=== PATIENT | female | born 1955 | race African-American/Black ===

== ENCOUNTER 2022-05-28 07:25 | Day surgery (SDC) | payer OTHER ==
[2022-05-20 13:03] VITALS: BMI 24.6
[2022-05-28 07:53] VITALS: TEMP 97.8
[2022-05-28] MEDS ORDERED: LIDOCAINE HCL/PF 2% SDV 5ML VIAL ONE (08:03)
[2022-05-28] MEDS ORDERED: PROPOFOL 120 ML ONE (08:04)
[2022-05-28 09:18] VITALS: PULSE 68; RESP 16
[2022-05-28 09:51] VITALS: BP 116/65
== END 2022-05-28 10:00 | disposition home or self-care (01) ==
LOC: FASU-ENDO 07:25
PROVIDERS: ATTEND Internal Medicine Gastroenterology
PROC: 0DJD8ZZ Inspection of Lower Intestinal Tract, Via Natural or Artificial Opening Endoscopic (ICD-10-PCS; principal; 2022-05-28 08:44)
DX: Z12.11 Encounter for screening for malignant neoplasm of colon (principal); K57.30 Diverticulosis of large intestine without perforation or abscess without bleeding; K64.1 Second degree hemorrhoids
CPT/HCPCS: 82962